=== PATIENT | male | born 1970 | race Caucasian/White ===

== ENCOUNTER 2020-10-06 02:04 | Emergency (ER) | payer BC ==
[~2020-10-06] VITALS: Ht 172.7 cm; Wt 86.2 kg
[~2020-10-06 02:04] MED LIST: DOCU100 PO; HYDACE5 PO; OXYACE5T PO; SULF10OPSA OD
[2020-10-06] MEDS ORDERED: REPATHA SU140 MG/1 M SC (02:40)
[2020-10-06 02:57] LABS: BASOPHILS ABSOLUTE AUTO 0.09 K/mm3 (0.00-0.23); BASOPHILS PERCENT AUTO 1 % (0-2); EOSINOPHILS ABSOLUTE AUTO 0.25 K/mm3 (0.00-0.68); EOSINOPHILS PERCENT AUTO 2 % (0-6); Hematocrit 46.1 % (37.0-53.0); Hemoglobin 15.8 g/dL (13.5-17.5); IMMATURE GRAN ABSOLUTE AUTO 0.03 K/mm3 (0.00-0.10); IMMATURE GRAN PERCENT AUTO 0 % (0-1); LYMPHOCYTES ABSOLUTE AUTO 3.63 K/mm3 (0.84-5.20); LYMPHOCYTES PERCENT AUTO 30 % (21-46); MONOCYTES ABSOLUTE AUTO 0.83 K/mm3 (0.16-1.47); MONOCYTES PERCENT AUTO 7 % (4-13); Mean Corpuscular HGB 31.2 pg (26.0-34.0); Mean Corpuscular HGB Conc 34.3 g/dL (31.5-36.5); Mean Corpuscular Volume 91 fL (80-100); Mean Platelet Volume 9.6 fL (9.1-12.4); NEUTROPHILS PERCENT AUTO 60 % (41-73); Platelet Count 253 K/mm3 (150-400); RDW Coefficient Variation 12.1 % (11.7-14.2); Red Blood Cell Count 5.06 M/mm3 (4.30-5.90); White Blood Cell Count 12.03 K/mm3 (4.00-11.30)
[2020-10-06 03:09] LABS: Alanine Aminotransfer (ALT/SGP 46 U/L (12-78); Albumin, Blood 4.2 g/dL (3.4-5.0); Albumin/Globulin Ratio 1.1 (0.8-1.8); Alk Phos 62 U/L (50-136); Anion Gap 6 mmol/L (6-16); Aspartate Aminotrans (AST/SGOT 28 U/L (12-37); Bilirubin, Total 0.3 mg/dL (0.1-1.0); Blood Urea Nitrogen 15 mg/dL (8-24); Bun/Creatinine Ratio 19.2 (12.0-20.0); CO2, Blood 23 mmol/L (21-32); Calcium, Blood 8.9 mg/dL (8.5-10.1); Chloride, Blood 110 mmol/L (98-108); Creatinine, Blood 0.78 mg/dL (0.60-1.20); Globulin, Blood 3.8 g/dL (2.2-4.0); Glomerular Filtration Rate >60 (60-); Glucose, Blood 104 mg/dL (70-99); Potassium, Blood 4.6 mmol/L (3.5-5.5); Sodium, Blood 139 mmol/L (136-145)
[2020-10-06 05:27] LABS: Source, Urine Clean Catch
[2020-10-06 05:30] LABS: Appearance, Urine Clear (Clear); Bilirubin, Urine Neg (Neg); Blood, Urine 5+ (Neg); Color, Urine Yellow (P-Yellow); Glucose Qualitative, Urine Neg (Neg); Ketones, Urine 1+ (Neg); Leukocyte Esterase, Urine Neg (Neg); Nitrite, Urine Neg (Neg); Protein, Urine 2+ (Neg); Specific Gravity, Urine 1.025 (1.003-1.022); Urobilinogen, Urine NORM (Normal)
[2020-10-06 05:40] LABS: Red Blood Cells, Urine 50-100 /hpf (0-2)
[2020-10-06 05:41] LABS: Mucus Heavy (0-Heavy); Squamous Epithelial Cells Not Seen /hpf (Few)
[2020-10-06 05:42] LABS: Bacteria Rare /hpf
[2020-10-06] MEDS ORDERED: Roxicodone5 MG PO (05:49)
[2020-10-06] MEDS ORDERED: IBUP600 PO (05:49)
== END 2020-10-06 06:03 | disposition home or self-care (01) ==
LOC: ER 02:04
PROVIDERS: Emergency Medicine
DX: N13.2 Hydronephrosis with renal and ureteral calculous obstruction (principal)
CPT/HCPCS: 36415; 74176; 80053; 81001; 85025; 96374; 96375; 99284-25; A9270; J1170; J1885; J7030

== ENCOUNTER → 2020-10-19 | Outpatient (CLI) | payer BC ==
[~2020-10-19] MED LIST changes: +IBUP600 PO; +REPATHA SU140 MG/1 M SC; +Roxicodone5 MG PO
[2020-10-28 07:10] LABS: CA OXALATE DIHYDRATE 30 % (.); CALCIUM OXALATE MONOHYDRATE 70 % (.); COLOR Brown (.); SIZE 3x3 mm (.); WEIGHT 9 mg (.)
== END ==
LOC: LAB SHORT 17:57 → LAB 17:57
PROVIDERS: Family Medicine
DX: R10.84 Generalized abdominal pain (principal)
CPT/HCPCS: 82365

== ENCOUNTER 2023-01-13 03:37 | Emergency (ER) | payer OTHER, BC ==
[~2023-01-13] VITALS: Ht 172.7 cm; Wt 86.2 kg
[2023-01-13 04:00] VITALS: BP 126/110
[2023-01-13] MEDS ORDERED: LOSA25 PO (04:04)
== END 2023-01-13 06:47 | disposition home or self-care (01) ==
LOC: ER 03:37
DX: M23.91 Unspecified internal derangement of right knee (principal); I10 Essential (primary) hypertension; Z79.899 Other long term (current) drug therapy; X50.1XXA Overexertion from prolonged static or awkward postures, initial encounter; Y92.89 Other specified places as the place of occurrence of the external cause; Y99.0 Civilian activity done for income or pay
CPT/HCPCS: 29505; 73562-RT; 99283-25

== ENCOUNTER 2023-09-02 15:59 | Emergency (ER) | payer OTHER, BC ==
[~2023-09-02] VITALS: Ht 172.7 cm; Wt 83.9 kg
[~2023-09-02 15:59] MED LIST changes: +LOSA25 PO
[2023-09-02 16:03] VITALS: BP 188/107
== END 2023-09-02 18:54 | disposition home or self-care (01) ==
LOC: ER 15:59
DX: I74.3 Embolism and thrombosis of arteries of the lower extremities (principal)
CPT/HCPCS: 93926; 99283-25

== ENCOUNTER 2024-02-20 07:00 | Day surgery (SDC) | payer BC ==
[~2024-02-20] VITALS: Ht 172.7 cm; Wt 81.6 kg
[2024-02-20] VITALS (8 sets, daily range): BP systolic 129–172; BP diastolic 89–118
[~2024-02-20 07:00] MED LIST changes: +AMLO5 PO; +ASPIR 8181 M1 PO; +CLOP75 PO; +CYCL10 PO; +FISH OIL 1,0001 EA10 PO; +LIDO5TO; +LIDOCAINE; +REPATHA SY140 MG/1 M SQ
[2024-02-20] MEDS ORDERED: Verapamil HCL 2.5 MG/ML 2ML Injection ONE (07:18)
[2024-02-20] MEDS ORDERED: Heparin Sodium 1000 Units/ML 10ML MDV ONE ×2 (07:19→07:48)
[2024-02-20] MEDS ORDERED: NS 1,000 ML IV ONE ×2 (07:19→07:48)
[2024-02-20] MEDS ORDERED: NS 500 ML IV ONE (07:19)
[2024-02-20] MEDS ORDERED: Nitroglycerin 2 MG/20 ML BTL ONE (07:20)
[2024-02-20] MEDS ORDERED: Aspir 8181 MG PO (07:24)
[2024-02-20] MEDS ORDERED: FentaNYL Citrate 50 MCG/ML 2 ML Injection ONE (08:42)
[2024-02-20] MEDS ORDERED: Midazolam HCl 1MG / ML 2ML Vial ONE (08:42)
[2024-02-20] MEDS ORDERED: HydrALAZINE HCl 20 MG / ML 1ML Vial ONE (09:38)
--- NOTE | 2024-02-20 10:10 | NUR ---
ASSUMED CARE OF PT POST PROCEDURE. PT AWAKE AND CONVERSING APPROPRIATELY; DENIES PAIN POST PROCEDURE. MONITOR SR 70-80'S, B/P 159/107, SPO2 99 % RA. L GROIN NO SWELLING/HEMATOMA, TEGADERM DRSG INTACT; ANGIOGRAM PERFORMED, LLE DP: ABSENT, PT 2+. PT TAKING SIPS OF JUICE WITHOUT ISSUE.
--- NOTE | 2024-02-20 11:05 | NUR ---
PT'S HOB ELEVATED, SITE UNCHANGED. PT EATING WITHOUT ISSUE.
[2024-02-20] MEDS ORDERED: Clopidogrel Bisulfate 75 MG Tab ONE (11:18)
--- NOTE | 2024-02-20 11:45 | NUR ---
PT RECEIVED DISCHARGE INSTRUCTIONS, MED LIST AND AFTER CARE INSTRUCTIONS; VERBALIZED GOOD UNDERSTANDING.
--- NOTE | 2024-02-20 12:10 | NUR ---
PT DRESSED SELF WITHOUT ISSUE, SITE UNCHANGED; IV REMOVED-CANNULA INTACT. REVIEWED DISCHARGE INSTRUCTIONS WITH PT, NO ADDITIONAL QUESTIONS.
--- NOTE | 2024-02-20 12:17 | NUR ---
PT LEFT FACILITY VIA W/C, CONDITION STABLE.
== END 2024-02-20 12:17 | disposition home or self-care (01) ==
LOC: MHTC 07:00
DX: I70.221 Atherosclerosis of native arteries of extremities with rest pain, right leg (principal); I10 Essential (primary) hypertension; F17.210 Nicotine dependence, cigarettes, uncomplicated; Z79.02 Long term (current) use of antithrombotics/antiplatelets; Z79.899 Other long term (current) drug therapy
CPT/HCPCS: 37221; 37226; 75716; 75774; 76937; 99152; 99153; A9270; C1725; C1760; C1769; C1874; C1876; C1887; C1894; J0360; J1644; J2250; J3010; J7030; J7050; Q9967